=== PATIENT | male | born 1945 ===

== ENCOUNTER 2023-12-20 05:39 | Outpatient (CLI) | payer BC, OTHER, SELFPAY ==
[2023-12-20 12:57] LABS: Abs Immature Grans 0.22 10^3/uL (0.0-0.06); Absolute Basophil Count 0.08 10^3/uL (0.0-0.2); Absolute Eosinophil Count 0.33 10^3/uL (0.0-0.7); Basophils % 0.3; Eosinophils % 1.2; HCT 46.3 % (40.0-50.0); HGB 15.2 g/dL (13.5-17.5); Immature Grans % 0.8; MCH 29.7 pg (27.0-33.0); MCHC 32.8 % (32.0-36.0); MCV 90 fL (80-95); MPV 10.6 fL (8.0-11.0); Monocytes % 3.4; Neutrophils % 29.2; Platelet Count 204 10^3/uL (130-400); RBC 5.12 10^6/uL (4.36-5.78); RDW 13.6 % (11.8-14.1); RDW-SD 45.5 fL
[2023-12-20 13:00] LABS: Absolute Lymphocyte Count 17.86 10^3/uL (1.2-3.4); Absolute Monocyte Count 0.93 10^3/uL (0.1-0.8); Absolute Neutrophil Count 8.01 10^3/uL (1.2-6.7)
[2023-12-20 13:08] LABS: WBC 27.44 10^3/uL (4.4-10.8)
[2023-12-20 13:13] LABS: Diff Comment Agrees w/ Instrument; Lymphocytes % 65.1; RBC Morphology Normal
[2023-12-20 13:17] LABS: ALT 113 U/L (16-63); AST 49 U/L (15-37); Albumin 3.6 g/dL (3.4-5.0); Alkaline Phosphatase 86 U/L (46-116); BUN 21 mg/dL (7-18); Bilirubin, Total 0.8 mg/dL (0.2-1.0); CREATININE 1.5 mg/dL (0.70-1.30); Calcium 9.3 mg/dL (8.5-10.1); Chloride 103 mmol/L (98-107); Estimated GFR 47.06 (mL/min/1.73m2); Glucose 265 mg/dL (74-106); LDH 154 U/L (85-227); Potassium 4.3 mmol/L (3.5-5.1); Sodium 138 mmol/L (136-145); Total Protein 6.9 g/dL (6.4-8.2)
== END 2023-12-20 05:40 | disposition home or self-care (01) ==
PROVIDERS: Visit Provider Nurse Practitioner Family
DX: C91.10 Chronic lymphocytic leukemia of B-cell type not having achieved remission (principal)
CPT/HCPCS: 36415; 80053; 83615; 85025